=== PATIENT | female | born 2000 | race Caucasian/White ===

== ENCOUNTER 2021-12-01 18:02 | Emergency (ER) | payer OTHER ==
[2021-12-01 18:33] VITALS: RESP 18; TEMP 97.3; BMI 25.4
[2021-12-01] MEDS ORDERED: ACETAMINOPHEN 325 MG TABLET (FP) PO ONE (20:52)
[2021-12-01] MEDS ORDERED: ACETAMINOPHEN 325 MG TABLET (FP) ONE ×2 (20:57→20:59)
[2021-12-01 21:13] LABS: BASO % 0.5 % (0-2.0); EOS % 0.5 % (0-4.5); HEMATOCRIT 37.5 % (32.4-45.2); HEMOGLOBIN 13.3 GM/dL (10.7-15.3); LYMPH % 26.1 % (8-40); MCH 31.6 pg (25.7-33.7); MCHC 35.5 g/dl (32.0-36.0); MEAN PLT VOLUME 8.2 fl (7.5-11.1); MONO % 5.4 % (3.8-10.2); NEUT % 67.5 % (42.8-82.8); PLATELET COUNT 323 10^3/uL (134-434); RBC 4.22 M/mm3 (3.60-5.2); RDW 13.1 % (11.6-15.6); WHITE BLOOD COUNT 8.2 K/mm3 (4.0-10.0)
[2021-12-01 22:50] LABS: CALCIUM 9.1 mg/dL (8.5-10.1)
[2021-12-01 22:51] LABS: ALBUMIN 3.8 g/dl (3.4-5.0); BLOOD UREA NITROGEN 11.7 mg/dL (7-18)
[2021-12-01 22:54] LABS: CREATININE 0.5 mg/dL (0.55-1.3)
[2021-12-01 22:56] LABS: TOT PROT 7.4 g/dl (6.4-8.2)
[2021-12-01 23:01] LABS: BILIRUBIN,TOTAL 0.4 mg/dL (0.2-1)
[2021-12-01 23:28] VITALS: BP 108/72; PULSE 72
== END 2021-12-01 23:30 | disposition home or self-care (01) ==
LOC: JER 18:02
DX: G40.89 Other seizures (principal)
CPT/HCPCS: 36415; 70450-TC; 72125-TC; 80053; 85025; 93005; 93010; 99285-25

== ENCOUNTER 2022-03-26 22:43 | Emergency (ER) | payer OTHER ==
[2022-03-26 23:26] VITALS: BP 103/61; PULSE 87; RESP 18; TEMP 98.6; BMI 31.1
[2022-03-27] MEDS ORDERED: SODIUM CHLORIDE 1,000 ML IV STA ×2 (00:29→03:22)
[2022-03-27] MEDS ORDERED: ONDANSETRON 4 MG/2 ML VIAL ONE (00:58)
[2022-03-27] MEDS ORDERED: ONDANSETRON 4 MG/2 ML VIAL IVPUSH ONE (00:58)
[2022-03-27 01:36] LABS: BASO % 0.2 % (0-2.0); EOS % 0.1 % (0-4.5); LYMPH % 9.9 % (8-40); MCH 30.9 pg (25.7-33.7); MCHC 34.1 g/dl (32.0-36.0); MEAN CELL VOLUME 90.8 fl (80-96); MEAN PLT VOLUME 8.6 fl (7.5-11.1); MONO % 4.7 % (3.8-10.2); NEUT % 85.1 % (42.8-82.8); PLATELET COUNT 279 10^3/uL (134-434); RBC 4.19 M/mm3 (3.60-5.2); RDW 12.6 % (11.6-15.6); WHITE BLOOD COUNT 11.2 K/mm3 (4.0-10.0)
[2022-03-27 01:55] LABS: CHLORIDE 102 mmol/L (98-107); SODIUM 139 mmol/L (136-145)
[2022-03-27 01:57] LABS: ALBUMIN 4.3 g/dl (3.4-5.0); ANION GAP 10 MMOL/L (8-16); BLOOD UREA NITROGEN 6.9 mg/dL (7-18); CALCIUM 9.3 mg/dL (8.5-10.1); CO2 28 mmol/L (21-32); GLUCOSE,RANDOM 90 mg/dL (74-106)
[2022-03-27 02:00] LABS: SGOT/AST 10 U/L (15-37); SGPT/ALT 26 U/L (13-61)
[2022-03-27 02:01] LABS: CREATININE 0.7 mg/dL (0.55-1.3)
[2022-03-27 02:02] LABS: BILIRUBIN,TOTAL 0.6 mg/dL (0.2-1); TOT PROT 8.2 g/dl (6.4-8.2)
[2022-03-27 02:03] LABS: ALK PHOS 45 U/L (45-117)
[2022-03-27 02:47] LABS: EPI CELLS 22 /uL (0-25.1); HYALINE CASTS 2 /uL (0-3.1); PH,URINE 6.5 (5.0-8.0); URINE APPEARANCE CLEAR; URINE BACTERIA 276 /uL (0-1359); URINE BILIRUBIN NEGATIVE (NEGATIVE); URINE COLOR YELLOW; URINE GLUCOSE (UA) NEGATIVE (NEGATIVE); URINE KETONE 3+ (NEGATIVE); URINE LEUK ESTERASE NEGATIVE (NEGATIVE); URINE NITRITE NEGATIVE (NEGATIVE); URINE PROTEIN 1+ (NEGATIVE); URINE RBC 148 /uL (0-23.9); URINE UROBILINOGEN 0.2 mg/dL (0.2-1.0); URINE WBC 15 /uL (0-25.8)
== END 2022-03-27 05:49 | disposition home or self-care (01) ==
LOC: JER 22:43
PROC: 3E033GC Introduction of Other Therapeutic Substance into Peripheral Vein, Percutaneous Approach (ICD-10-PCS; principal; 2022-03-26)
DX: R11.10 Vomiting, unspecified (principal); E86.0 Dehydration
CPT/HCPCS: 0241U-QW; 36415; 80053; 81003; 82962; 84702; 84703; 85025; 87086; 87651; 99284-25

== ENCOUNTER 2022-03-30 22:11 | Emergency (ER) | payer OTHER ==
[2022-03-30 22:19] VITALS: BP 112/78; PULSE 78; RESP 18; TEMP 98.2; BMI 31.1
[2022-03-31] MEDS ORDERED: LACTATED RINGERS SOLUTION 1000 ML INFUS.BAG IV ONE (00:52)
[2022-03-31] MEDS ORDERED: SODIUM CHLORIDE 0.9% 500 ML INFUS.BAG IV ONE ×2 (01:08→05:19)
[2022-03-31 01:24] LABS: BASO % 0.4 % (0-2.0); EOS % 1.1 % (0-4.5); HEMATOCRIT 41.1 % (32.4-45.2); HEMOGLOBIN 13.8 GM/dL (10.7-15.3); MCH 30.4 pg (25.7-33.7); MCHC 33.5 g/dl (32.0-36.0); MEAN CELL VOLUME 90.8 fl (80-96); MEAN PLT VOLUME 8.2 fl (7.5-11.1); MONO % 6.8 % (3.8-10.2); NEUT % 51.7 % (42.8-82.8); PLATELET COUNT 307 10^3/uL (134-434); RBC 4.53 M/mm3 (3.60-5.2); RDW 12.6 % (11.6-15.6); WHITE BLOOD COUNT 8.1 K/mm3 (4.0-10.0)
[2022-03-31 01:45] LABS: ALBUMIN 4.2 g/dl (3.4-5.0); BLOOD UREA NITROGEN 7.2 mg/dL (7-18); CALCIUM 9.2 mg/dL (8.5-10.1)
[2022-03-31 01:47] LABS: CREATININE 0.7 mg/dL (0.55-1.3)
[2022-03-31 01:49] LABS: BILIRUBIN,TOTAL 0.9 mg/dL (0.2-1); TOT PROT 7.8 g/dl (6.4-8.2)
[2022-03-31] MEDS ORDERED: ONDANSETRON *ODT* 4 MG TABLET SL ONE (03:27)
[2022-03-31] MEDS ORDERED: ONDANSETRON *ODT* 4 MG TABLET ONE (03:30)
[2022-03-31 04:48] LABS: EPI CELLS 20 /uL (0-25.1); HYALINE CASTS 0 /uL (0-3.1); URINE APPEARANCE CLEAR; URINE BACTERIA 192 /uL (0-1359); URINE BILIRUBIN NEGATIVE (NEGATIVE); URINE COLOR YELLOW; URINE GLUCOSE (UA) NEGATIVE (NEGATIVE); URINE KETONE 1+ (NEGATIVE); URINE LEUK ESTERASE NEGATIVE (NEGATIVE); URINE NITRITE NEGATIVE (NEGATIVE); URINE PROTEIN NEGATIVE (NEGATIVE); URINE RBC 19 /uL (0-23.9); URINE WBC 6 /uL (0-25.8)
== END 2022-03-31 06:15 | disposition home or self-care (01) ==
LOC: JER 22:11
DX: R11.2 Nausea with vomiting, unspecified (principal)
CPT/HCPCS: 36415; 80053; 81003; 83690; 85025; 87086; 99284-25; Q0162